=== PATIENT | male | born 1975 | race Caucasian/White ===

== ENCOUNTER 2016-04-04 10:54 | Emergency (ER) | payer MEDICAID, OTHER ==
[2016-04-04 11:19] VITALS: BP 149/79; PULSE 66; RESP 18; TEMP 98.1; O2SAT 97
--- NOTE | 2016-04-04 12:24 | UCPHY ---
H & P Patient Type: New Smoking Status: Current every day smoker Time Seen by Provider: 04/04/16 11:55 HPI/ROS: CHIEF COMPLAINT: left hand infection HISTORY OF PRESENT ILLNESS: 41-year-old male presents for recheck of his left hand infection. Patient cut his left hand on metal trimming 3 weeks ago, he was seen in an outside emergency department and was constant and put on a 10 day course of clindamycin. Patient reports his symptoms are improving though still continue and he thinks they got a little worse yesterday. He denies numbness or tingling to his fingers, fevers, chills. Patient does smoke cigarettes, he is not immunocompromised. REVIEW OF SYSTEMS: A comprehensive 10 point review of systems is otherwise negative aside from elements mentioned in the history of present illness. (Karla Garcia) Physical Exam: GEN: Awake, alert, oriented, no acute distress RESP: nl resp effort MSK: Left middle finger with mild swelling around PIP joint, mild tenderness to palpation at PIP joint and MCP joint, no tenderness over flexor tendon, mild erythema to ulnar aspect middle finger. No felon SKIN: No break in skin (Karla Garcia) Constitutional: Initial Vital Signs Temperature (C) 36.7 C 04/04/16 11:14 Heart Rate 66 04/04/16 11:14 Respiratory Rate 18 04/04/16 11:14 Blood Pressure 149/79 H 04/04/16 11:14 O2 Sat (%) 97 04/04/16 11:14 O2 Delivery Mode Room Air Allergies/Adverse Reactions: No Known Allergies Allergy (Unverified 04/04/16 11:13) Home Medications: Medication Instructions Recorded Cephalexin [Keflex] 500 mg PO QID 7 Days 04/04/16 Clindamycin 04/04/16 Diclofenac Sodium 04/04/16 Sulfamethox/Tmp 800/160 mg 1 tab PO BID #14 tab 04/04/16 [Bactrim Ds] MDM/Departure - MDM ED Course/Re-evaluation: 41-year-old male presents with a recheck a left middle finger cellulitis. Today is day 10 of clindamycin and he feels like he started to worsen yesterday with more tenderness and redness. No fevers or chills. Patient was placed on Keflex and Bactrim. I gave him a hand surgeon to follow up with, he is given strict return precautions for any worsening symptoms. He has no evidence for a flexor tenosynovitis. (Karla Garcia) The patient was evaluated and managed by the nurse practitioner, Karla Garcia.. My co-signature indicates that I have reviewed this chart and I agree with the findings and plan of care as documented. I am the secondary supervising physician. (Dariana Hylton) Differential Diagnosis: Diagnosis considered but not limited to cellulitis, felon, flexor tenosynovitis (Karla Garcia) - Depart Disposition: Home, Routine, Self-Care Clinical Impression: Cellulitis of left middle finger Instructions: Cellulitis (ED) Additional Instructions: Warm soaks 5 times per day for 10 minutes. Take your antibiotics as prescribed. Return for any worsening symptoms. Follow up with the hand surgeon for symptoms that are not improving. Prescriptions: Sulfamethox/Tmp 800/160 mg [Bactrim Ds] 1 tab PO BID #14 tab Cephalexin [Keflex] 500 mg PO QID 7 Days Referrals: Lul Rapp MD [Medical Doctor] - As per Instructions (Hand doctor on-call) - PQRS PQRS Measurement: na (Karla Garcia)
== END 2016-04-04 12:33 | disposition home or self-care (01) ==
LOC: CED 10:54
DX: L03.012 Cellulitis of left finger (principal)
CPT/HCPCS: 99203-PO; G0463-PO